=== PATIENT | male | born 1985 | race Caucasian/White ===

== ENCOUNTER 2017-12-21 19:08 | Observation (INO) | payer SELFPAY ==
[~2017-12-21] VITALS: Ht 182.9 cm; Wt 110.0 kg
[2017-12-21 19:30] VITALS: BP 116/70; PULSE 101; RESP 16; TEMP 98.9; O2SAT 98
--- NOTE | 2017-12-21 22:13 | PD ---
HPI Chief Complaint: Injury Time Seen by Provider: 22:09 Travel History International Travel<30 days: No Contact w/Intl Traveler<30days: No Traveled to known affect area: No History of Present Illness HPI Patient states that while he was having sex in morning, he missed "the hole" and he had a bent swollen penis since then.. now that his penis is not erect is not painful. but when erect is painful and bent irregularly.. PFSH Social History Tobacco Use: Yes Allergies-Medications (Allergen,Severity, Reaction): Coded Allergies: No Known Allergies (Unverified , 12/21/17) Reported Meds & Prescriptions Reported Meds & Active Scripts Active Reported Keflex (Cephalexin) 500 Mg Capsule 500 Mg PO Q8H Colace (Docusate Sodium) 100 Mg Capsule 100 Mg PO BID Percocet (Oxycodone-Acetaminophen) 5-325 mg Tab 1-2 Tab PO Q6H PRN Review of Systems General / Constitutional: No: Fever Eyes: No: Visual changes HENT: No: Headaches Cardiovascular: No: Chest Pain or Discomfort Respiratory: No: Shortness of Breath Gastrointestinal: No: Abdominal Pain Genitourinary: Positive: Other (penile abnormal shape) Musculoskeletal: No: Pain Skin: No Rash Neurologic: No: Weakness Psychiatric: No: Depression Endocrine: No: Polydipsia Hematologic/Lymphatic: No: Easy Bruising Physical Exam Narrative GENERAL: SKIN: Warm and dry. HEAD: Atraumatic. Normocephalic. EYES: Pupils equal and round. No scleral icterus. No injection or drainage. ENT: No nasal bleeding or discharge. Mucous membranes pink and moist. NECK: Trachea midline. No JVD. CARDIOVASCULAR: Regular rate and rhythm. RESPIRATORY: No accessory muscle use. Clear to auscultation. Breath sounds equal bilaterally. GASTROINTESTINAL: Abdomen soft, non-tender, nondistended. inferior tunica albuginea ruptured without extension (non open). no urethral blood or discharge at meatus. MUSCULOSKELETAL: Extremities without clubbing, cyanosis, or edema. No obvious deformities. NEUROLOGICAL: Awake and alert. No obvious cranial nerve deficits. Motor grossly within normal limits. Five out of 5 muscle strength in the arms and legs. Normal speech. PSYCHIATRIC: Appropriate mood and affect; insight and judgment normal. Data Data Last Documented VS Orders Orders Mandatory Outpatient Referral (12/21/17 22:35) Admit Order (Ed Use Only) (12/22/17 00:15) [facility] Medical Decision Making Medical Screen Exam Complete: Yes Emergency Medical Condition: Yes Medical Record Reviewed: Yes Differential Diagnosis Penile contusion versus penile fracture versus Narrative Course Clinically the patient is found to have a penile fracture Diagnosis Primary Impression: Penile fracture Qualified Codes: S39.840A - Fracture of corpus cavernosum penis, initial encounter Admitting Information Admitting Physician Requests: Observation Patient Instructions: General Instructions Condition: Stable Aaron De Luna MD Dec 21, 2017 22:13
[2017-12-22] MEDS ORDERED: LACTULOSE SYRUP 20 GM/30 ML CUP PO PRN (00:30)
[2017-12-22] MEDS ORDERED: ACETAMINOPHEN 325 MG TAB PO PRN (00:30)
[2017-12-22] MEDS ORDERED: ACETAMINOPHEN/HYDROcodone 325 MG/5 MG TAB PO PRN (00:30)
[2017-12-22] MEDS ORDERED: ONDANSETRON HCL 4 MG/2 ML VIAL IVP PRN (00:30)
[2017-12-22] MEDS ORDERED: SENNOSIDES 8.6 MG TAB PO PRN (00:30)
[2017-12-22] MEDS ORDERED: BISACODYL 10 MG SUPP RECTAL PRN (00:30)
[2017-12-22] MEDS ORDERED: MAGNESIUM HYDROXIDE SUSP 30 ML CUP PO PRN (00:30)
[2017-12-22] MEDS ORDERED: SODIUM CHLORIDE 0.9% FLUSH 10 ML FLUSH IV FLUSH PRN (00:30)
[2017-12-22] MEDS: SODIUM CHLOR 0.9% 1000 ML INJ 1,000 ML IV SCH ×2 (01:11→10:16)
[2017-12-22] MEDS: MORPHINE SULFATE 2 MG/ML INJ IV PUSH PRN ×2 (01:16→08:58)
[2017-12-22 01:28] VITALS: BP 120/69; PULSE 75; RESP 18; TEMP 98; O2SAT 98
[2017-12-22] MEDS ORDERED: SODIUM CHLORID 0.9% 500 ML IV PRN (01:30)
[2017-12-22] MEDS ORDERED: CHLORHEXIDINE GLUCONATE 2 % 1 PACK (2 CLOTHS) TOPICAL PRN (01:30)
[2017-12-22] MEDS ORDERED: LACTATED RINGER'S 1000 ML IV PRN (01:30)
[2017-12-22] MEDS ORDERED: POVIDONE IODINE 5% (ANTISEPSIS KIT) 4 APPLICATIONS EACH NARE PRN (01:30)
--- NOTE | 2017-12-22 02:17 | HHI.HP ---
[facility] Service [facility] Primary Care Physician No Primary Care Physician Admission Diagnosis FRACTURE PENIS Diagnoses: (1) Penile fracture Diagnosis: Principal Travel History International Travel<30 Days: No Contact w/Intl Traveler <30 Da: No Traveled to Known Affected Are: No History of Present Illness This is a 32-year-old male with no significant PMH who presented to the ER with complaints of significant pain to penis. States he was having sex and missed, causing his penis to bend. Reports significant swelling and pain. No other injuries noted. Dr. Rice consulted by ER physician, plan is for surgical intervention in am. Review of Systems Except as stated in HPI: all other systems reviewed are Neg ROS: 14 point review of systems otherwise negative. Past Family Social History Past Medical History PMH: None Past Surgical History PAST SURGICAL HISTORY: None Allergies: Coded Allergies: No Known Allergies (Unverified , 12/21/17) Family History PAST FAMILY HISTORY: Reviewed. No h/o DM or CAD Social History PAST SOCIAL HISTORY: Occasional alcohol. Negative for tobacco or drugs. Physical Exam Vital Signs Vital Signs Date Time Temp Pulse Resp B/P (MAP) Pulse Ox O2 Delivery O2 Flow Rate FiO2 12/22/17 01:28 98.0 75 18 120/69 (86) 98 12/22/17 01:18 12/21/17 19:30 98.9 101 16 116/70 (85) 98 Room Air Physical Exam PE: GENERAL: Pleasant young male in no acute distress. HEENT: PERRLA, EOMI. No scleral icterus or conjunctival pallor. No lid lag or facial droop. CARDIOVASCULAR: Regular rate and rhythm. No obvious murmurs to auscultation. No chest tenderness to palpation. RESPIRATORY: No obvious rhonchi or wheezing. Clear to auscultation. Breath sounds equal bilaterally. GASTROINTESTINAL: Abdomen soft, non-tender, nondistended. BS normal. MUSCULOSKELETAL: Extremities without clubbing, cyanosis, or edema. No obvious deformities. +penile swelling, no blood noted. NEUROLOGICAL: Awake, alert and oriented x4. No focal neurologic deficits. Moving both upper and lower extremities spontaneously. Caprini VTE Risk Assessment Caprini VTE Risk Assessment: No/Low Risk (score <= 1) Caprini Risk Assessment Model Point Value = 1 Point Value = 2 Point Value = 3 Point Value = 5 Age 41-60 Minor surgery BMI > 25 kg/m2 Swollen legs Varicose veins or History of unexplained or recurrent spontaneous Oral contraceptives or hormone replacement Sepsis (< 1 month) Serious lung disease, including pneumonia (< 1 month) Abnormal pulmonary function Acute myocardial infarction Congestive heart failure (< 1 month) History of inflammatory bowel disease Medical patient at bed rest Age 61-74 Arthroscopic surgery Major open surgery (> 45 min) Laparoscopic surgery (> 45 min) Malignancy Confined to bed (> 72 hours) Immobilizing plaster cast Central venous access Age >= 75 History of VTE Family history of VTE Factor V Leiden Prothrombin [id number] Lupus anticoagulant Anticardiolipin antibodies Elevated serum homocysteine Heparin-induced thrombocytopenia Other congenital or acquired thrombophilia Stroke (< 1 month) Elective arthroplasty Hip, pelvis, or leg fracture Acute spinal cord injury (< 1 month) Prophylaxis Regimen Total Risk Factor Score Risk Level Prophylaxis Regimen 0-1 Low Early ambulation 2 Moderate Order ONE of the following: *Sequential Compression Device (SCD) *Heparin 5000 units SQ BID 3-4 Higher Order ONE of the following medications: *Heparin 5000 units SQ TID *Enoxaparin/Lovenox 40 mg SQ daily (WT < 150 kg, CrCl > 30 mL/min) *Enoxaparin/Lovenox 30 mg SQ daily (WT < 150 kg, CrCl > 10-29 mL/min) *Enoxaparin/Lovenox 30 mg SQ BID (WT < 150 kg, CrCl > 30 mL/min) AND/OR *Sequential Compression Device (SCD) 5 or more Highest Order ONE of the following medications: *Heparin 5000 units SQ TID (Preferred with Epidurals) *Enoxaparin/Lovenox 40 mg SQ daily (WT < 150 kg, CrCl > 30 mL/min) *Enoxaparin/Lovenox 30 mg SQ daily (WT < 150 kg, CrCl > 10-29 mL/min) *Enoxaparin/Lovenox 30 mg SQ BID (WT < 150 kg, CrCl > 30 mL/min) AND *Sequential Compression Device (SCD) Assessment and Plan Problem List: (1) Penile fracture ICD Code: S39.840A - Fracture of corpus cavernosum penis, initial encounter Status: Acute Assessment and Plan A/P: 1. Penile Fracture: s/p injury during sex, Dr. Rice consulted, plan is for surgical intervention in am. NPO, IVF, obtain pre-op labs, analgesics/ antiemetics as needed. 2. DVT Prophylaxis: SCD/Teds. 3. Social work for d/c planning as needed. 4. Case discussed w/ ER physician at length, labs/records/imaging reviewed by me Problem Qualifiers (1) Penile fracture: Qualified Codes: S39.840A - Fracture of corpus cavernosum penis, initial encounter Kristin Matthew MD Dec 22, 2017 02:17
[2017-12-22 04:32] VITALS: BP 106/55; PULSE 64; RESP 18; TEMP 97.7; O2SAT 99
[2017-12-22 08:00] VITALS: BP 108/58; PULSE 68; RESP 16; TEMP 97; O2SAT 97
[2017-12-22] MEDS ORDERED: SODIUM CHLORIDE 0.9% FLUSH 10 ML FLUSH IV FLUSH SCH (09:00)
[2017-12-22] MEDS ORDERED: DOCUSATE SODIUM 50 MG/SENNA 8.6 MG TAB PO SCH (09:00)
[2017-12-22] MEDS ORDERED: ceFAZolin 2 GM PREMIX 50 ML ONE (12:24)
[2017-12-22] MEDS ORDERED: BUPIVACAINE HCL PF 0.5% 30 ML VIAL ONE (12:29)
--- NOTE | 2017-12-22 13:00 | MB ---
cc: Abdullahi Rice MD DATE: 12/22/2017 REASON FOR CONSULTATION: Penile fracture. HISTORY OF PRESENT ILLNESS: The patient is a 32-year-old male who presented to the ER last evening with complaints of pain to his penis. The patient states he was having sex yesterday morning and slid out and hit his penis against his partner's pubic bone. He heard a pop and he immediately lost his erection. He reports significant swelling and pain and discoloration to his penis. Over the course of the day his pain continued to worsen and swelling so he came to the ER for further evaluation. In the ER, he did not have any blood at his meatus and was able to void on his own. Urology was consulted for likely penile fracture. Currently, the patient is still having pain, but is controlled by morphine. He has urinated several times since being in the hospital. He denies prior episodes of the pain. Denies any urological history including kidney stones or urinary tract infections. Normally, he pees with a good stream. Denies hematuria or urinary incontinence. Denies any prior surgery on his prostate or his penis or his urethra. REVIEW OF SYSTEMS: See HPI. All other systems reviewed, otherwise were negative. PAST MEDICAL HISTORY: None. PAST SURGICAL HISTORY: Circumcision. ALLERGIES: None. FAMILY HISTORY: Denies urolithiasis or genitourinary malignancy. SOCIAL HISTORY: Occasional alcohol. Denies tobacco or drugs. He works in a [employer]. PHYSICAL EXAMINATION: VITAL SIGNS: Temperature 97, pulse 58, respiration rate 16, BP 108/58, sating 97% on room air. GENERAL: He is alert and oriented x3, no apparent distress, pleasant, cooperative gentleman who appears his stated age. HEENT: Head is normocephalic, atraumatic. Eyes: No sclerae icterus. Extraocular muscles intact. External auditory canals normal. External nares normal. SKIN: Cool and moist. No ulcers or rashes seen. NECK: Supple. Trachea is midline. No JVD. LUNGS: Clear to auscultation bilaterally. No wheezes, rales, rhonchi. HEART: Regular rate and rhythm. No murmurs, gallops or rubs. ABDOMEN: Soft, nontender, nondistended, positive bowel sounds. GENITOURINARY EXAM: His penis is circumcised and slightly deviated to the left. There is minimal swelling or bruising. There is pain to palpation, but no defect definitively palpated. His scrotum is edematous but nontender. Testicles are normal in size and consistency, without mass. RECTAL EXAM: Not indicated at this time. EXTREMITIES: Nontender. No clubbing, cyanosis or edema. NEUROLOGIC: Cranial nerves II through XII 12 intact. Strength 5/5 in all 4 extremities. LABORATORY DATA: None. ASSESSMENT: The patient is a 32-year-old male with suspected penile fracture. PLAN: I will keep the patient n.p.o., will take him to the operating room today for penile exploration and possible repair of penile fracture. Discussed risks, benefits, alternatives of the procedure with the patient including the risk of erectile dysfunction, curvature of the penis, urethral injury among others. He understood these risks and elected to proceed. Abdullahi Rice MD EMSabrina/AISHWARYA , 12:02 PM , 12:59 PM
[2017-12-22] MEDS ORDERED: DO NOT ADM ANY ANTICOAGULANT DRUGS PRN (13:42)
[2017-12-22] MEDS ORDERED: oxyCODONE/ACETAMINOPHEN 5 MG/325 MG TAB PO PRN (13:45)
[2017-12-22] MEDS ORDERED: MIDAZOLAM HCL 2 MG/2 ML VIAL ONE (14:11)
[2017-12-22] MEDS ORDERED: MORPHINE SULFATE 4 MG/ML INJ ONE (14:12)
[2017-12-22 14:32] VITALS: BP 108/69; PULSE 64; RESP 16; TEMP 97.9; O2SAT 97
--- NOTE | 2017-12-22 14:57 | HHI.PR ---
Subjective Remarks 32-year-old male admitted for penile fracture. Surgery is occurring today. No new complaints from patient. No baseline medical conditions. Objective Vital Signs Date Time Temp Pulse Resp B/P (MAP) Pulse Ox O2 Delivery O2 Flow Rate FiO2 12/22/17 14:32 97.9 64 16 108/69 (82) 97 12/22/17 13:42 97.6 73 15 107/63 (78) 94 Room Air 12/22/17 08:00 97.0 68 16 108/58 (75) 97 12/22/17 04:32 97.7 64 18 106/55 (72) 99 12/22/17 01:28 98.0 75 18 120/69 (86) 98 12/22/17 01:18 12/21/17 19:30 98.9 101 16 116/70 (85) 98 Room Air I/O 12/21/17 12/21/17 12/21/17 12/22/17 12/22/17 12/22/17 07:00 15:00 23:00 07:00 15:00 23:00 Intake Total 419 ml 1354 ml Output Total 10 ml Balance 419 ml 1344 ml Intake Oral 0 ml IV Total 419 ml 1354 ml Output Estimated Blood Loss 10 ml # Voids 1 # Bowel Movements 0 Objective Remarks GENERAL: NAD, A&Ox3 HEAD: Normocephalic. NECK: Supple, trachea midline. No lymphadenopathy. EYES: No scleral icterus. No injection or drainage. CARDIOVASCULAR: Regular rate and rhythm without murmurs, gallops, or rubs. RESPIRATORY: Breath sounds equal bilaterally. No accessory muscle use. GASTROINTESTINAL: Abdomen soft, non-tender, nondistended. MUSCULOSKELETAL: No cyanosis, or edema. SKIN: Warm and dry. NEURO: No focal neurological deficitis. A/P Problem List: (1) Penile fracture ICD Code: S39.840A - Fracture of corpus cavernosum penis, initial encounter Status: Acute Assessment and Plan 32-year-old male admitted secondary to penile fracture Penile fracture Surgical repair today Urology following As needed pain treatments Discharge planning Patient has no pre-existing medical conditions to hold him in the hospital , so he'll be medically stable for discharge after urology clears him Problem Qualifiers (1) Penile fracture: Qualified Codes: S39.840A - Fracture of corpus cavernosum penis, initial encounter David Blood MD Dec 22, 2017 14:57
[2017-12-22 16:03] LABS: AUTOMATED NEUTROPHIL # 9.8 TH/MM3 (1.8-7.7); BASOPHIL % 0.4 % (0.0-2.0); EOSINOPHIL # 0.1 TH/MM3 (0-0.4); EOSINOPHIL % 0.6 % (0.0-4.0); HEMATOCRIT 39.4 % (39.0-51.0); HEMOGLOBIN 13.9 GM/DL (13.0-17.0); LYMPH % 14.3 % (9.0-44.0); LYMPHOCYTE # 1.7 TH/MM3 (1.0-4.8); MEAN CELL VOLUME 94.8 FL (80.0-100.0); MEAN CORPUSCULAR HEMOGLOBIN 33.4 PG (27.0-34.0); MEAN CORPUSCULAR HGB CONC 35.2 % (32.0-36.0); MEAN PLATELET VOLUME 8.5 FL (7.0-11.0); MONO % 3.9 % (0.0-8.0); MONOCYTE # 0.5 TH/MM3 (0-0.9); NEUT % 80.8 % (16.0-70.0); PLATELET COUNT 255 TH/MM3 (150-450); RED BLOOD COUNT 4.16 MIL/MM3 (4.50-5.90); RED CELL DISTRIBUTION WIDTH 13.8 % (11.6-17.2); WHITE BLOOD COUNT 12.2 TH/MM3 (4.0-11.0)
[2017-12-22 16:14] LABS: INTERNATIONAL NORMALIZED RATIO 1.1 RATIO; PROTHROMBIN TIME - PATIENT 10.7 SEC (9.8-11.6)
[2017-12-22 16:31] LABS: ALBUMIN 3.5 GM/DL (3.4-5.0); ALT (GPT) 14 U/L (12-78); AST (GOT) 14 U/L (15-37); BLOOD UREA NITROGEN 13 MG/DL (7-18); CALCIUM 8.1 MG/DL (8.5-10.1); CHLORIDE 106 MEQ/L (98-107); CREATININE 1.06 MG/DL (0.60-1.30); GLOMERULAR FILTRATION RATE 81 ML/MIN (>89); GLUCOSE,RANDOM 99 MG/DL (74-106); SODIUM (NA) 140 MEQ/L (136-145)
[2017-12-22 16:33] LABS: ALKALINE PHOSPHATASE 82 U/L (45-117); TOTAL BILIRUBIN ADULT 0.5 MG/DL (0.2-1.0); TOTAL PROTEIN 7.3 GM/DL (6.4-8.2)
--- NOTE | 2017-12-22 17:07 | HHI.DS ---
Discharge Summary Admission Date Dec 22, 2017 at 00:17 Discharge Date: Dec 22, 2017 Admitting Diagnosis FRACTURE PENIS (1) Penile fracture ICD Code: S39.840A - Fracture of corpus cavernosum penis, initial encounter Status: Acute Procedures Penile fracture repair Brief History - From Admission This is a 32-year-old male with no significant PMH who presented to the ER with complaints of significant pain to penis. States he was having sex and missed, causing his penis to bend. Reports significant swelling and pain. No other injuries noted. Dr. Rice consulted by ER physician, plan is for surgical intervention in am. CBC/BMP: 12/22/17 1509 12/22/17 1509 Significant Findings Laboratory Tests Test 12/22/17 15:09 White Blood Count 12.2 TH/MM3 (4.0-11.0) Red Blood Count 4.16 MIL/MM3 (4.50-5.90) Neutrophils (%) (Auto) 80.8 % (16.0-70.0) Neutrophils # (Auto) 9.8 TH/MM3 (1.8-7.7) Calcium Level 8.1 MG/DL (8.5-10.1) Aspartate Amino Transf (AST/SGOT) 14 U/L (15-37) Estimat Glomerular Filtration Rate 81 ML/MIN (>89) Hospital Course Mr. Mcdonald is a 32-year-old male. He was admitted secondary to a penile fracture related to sexual activity. Surgical repair was performed today. The patient is doing well postop. He has urinated. He has been instructed on dressing changes, to not occur prior to 48 hours. Pain is presently controlled. He has been prescribed Keflex, Percocet, and Colace by urology. He will follow up with urology as an outpatient. Medically the patient is healthy without prior existing medical problems. Medically stable for discharge to home today. Pt Condition on Discharge: Stable Discharge Disposition: Discharge Home Discharge Time: <= 30 minutes Discharge Instructions DIET: Follow Instructions for: As Tolerated, No Restrictions Activities you can perform: Regular-No Restrictions Activities to Avoid: Sexual Activity Other Activity Instructions: Follow up with urology in regards to when it is safe to resume sexual activity. Follow up Referrals: Urology - 1 Week with Abdullahi Rice MD Medication Profile: No Active Prescriptions or Reported Meds David Blood MD Dec 22, 2017 17:07
--- NOTE | 2017-12-22 17:24 | MP ---
cc: Abdullahi Rice MD, Evan M MD DATE OF OPERATION: 12/22/2017 PREOPERATIVE DIAGNOSIS: Penile fracture. POSTOPERATIVE DIAGNOSIS: Penile fracture. PROCEDURE PERFORMED: 1. Penile exploration. 2. Repair of penile fracture. SURGEON Abdullahi Rice MD ANESTHESIA: General. COMPLICATIONS: None. PREOPERATIVE ANTIBIOTICS: Ancef 2 grams IV. DRAINS: None. SPECIMENS: None. ESTIMATED BLOOD LOSS: 10 mL. DISPOSITION: Stable to recovery. INDICATIONS: The patient is a 32-year-old male who sustained acute onset of penile swelling and pain following an incident during sexual intercourse. The patient presents today for penile exploration and possible repair of penile fracture. The patient has voided on his own several times since being in the hospital and it has been reported no blood in his urine. Treatment options were discussed. The patient elected to proceed with exploration and possible repair of his penile fracture. After risks, benefits, and alternatives were explained to patient including the risks of erectile dysfunction, penile curvature and urethral injury. The patient elected to proceed. Informed consent was obtained. DETAILS OF PROCEDURE: The patient was properly identified and brought back to the operating room and was laid supine on the operating table. Appropriate timeout was performed. Under the direction of anesthesiology, the patient was intubated and induced under general anesthetic. Preoperative antibiotics in the form of Ancef 2 grams IV were given 1 hour prior to start of procedure. The patient was then prepped and draped in normal sterile surgical fashion. A 14-Ugandan red rubber catheter was passed without difficulty into the patient's bladder and bladder was drained of clear yellow urine. The red rubber was left in place. A circumscribing incision was made just proximal to the coronal sulcus with a #15 blade. Using Metzenbaum scissors, I then degloved the penis all the way down to the base. At this time, at the base of the penis a very proximal large hematoma on the patient's right-hand side was seen. This was opened up and the hematoma was evacuated. During evacuation there was some bleeding. Hemostasis was achieved with electrocautery. At this time, right near the corpus spongiosum was the corporal defect. It had split. It was quite noticeable. It was repaired with 4-0 Vicryl with [id number] interrupted stitches. Once the corporal was reapproximated, the tissue was then closed over the corporal spongiosum with interrupted 4-0 Vicryls. At this time, the penile shaft skin was then reapproximated to the coronal sulcus with 3-0 interrupted Vicryl sutures. Hemostasis was adequate. A dorsal penile block was then performed again with 0.25% Marcaine plain. The red rubber was removed and subsequently repassed prior to waking the patient up and there was no difficulty with passing the red rubber. This concluded the procedure. The patient was extubated and sent to recovery in stable condition. He will be transferred back to the floor for routine postoperative care. From a urology standpoint, he is okay for discharge home. He can follow up in 7-10 days as an outpatient. He will be instructed to take the dressing off in 48 hours. MD LYUBOV Wynn//rh , 01:41 PM , 05:00 PM
[2017-12-22] MEDS ORDERED: PERC5TAB12 PO (18:06)
[2017-12-22] MEDS ORDERED: CEPH-460 PO (18:06)
[2017-12-22] MEDS ORDERED: COLA100C5 PO (18:06)
[2017-12-22 18:47] VITALS: BP 108/67; PULSE 72; RESP 16; TEMP 97.5; O2SAT 100
[2017-12-22] MEDS ORDERED: DEXAMETHASONE SOD PHOS 4 MG/ML VIAL IV ONE (18:57)
[2017-12-22] MEDS ORDERED: PROPOFOL 200 MG/20 ML AMP IV ONE (18:57)
[2017-12-22] MEDS ORDERED: ONDANSETRON HCL 4 MG/2 ML VIAL IV ONE (18:57)
[2017-12-22] MEDS ORDERED: LIDOCAINE HCL 1% PF 5 ML SYRINGE OTHER ONE (18:57)
[2017-12-22] MEDS ORDERED: CEPHALEXIN MONOHYDRATE 500 MG CAP PO SCH (21:00)
== END 2017-12-22 18:58 | disposition home or self-care (01) ==
LOC: NEPD 19:08 → NEDA 12-22 00:17 → N06A 12-22 00:52
PROVIDERS: ADMIT Hospitalist; ATTEND Hospitalist
DX: S39.840A Fracture of corpus cavernosum penis, initial encounter (principal)
CPT/HCPCS: 00920; 54437; 80053; 85025; 85610; 96361; 96374; 96376; 99285; G0378; J0690; J1100; J2250; J2270; J2405; J3010; J7030; J7120